=== PATIENT | male | born 2000 | race Two or more races ===

== ENCOUNTER 2025-02-13 08:00 | Emergency (ER) | payer SELFPAY ==
[~2025-02-13] VITALS: Ht 180.3 cm; Wt 74.8 kg
[2025-02-13 08:29] LABS: PLATELET COUNT (AUTO) 236 K/uL (150-450); RED BLOOD CELL COUNT(AUTO) 4.79 MIL/uL (4.5-6.0); RED CELL DISTRIBUTION WIDTH 12.9 % (11.5-15.0); WHITE BLOOD COUNT (AUTO) 7.8 K/uL (4.3-11.0)
[2025-02-13] MEDS ORDERED: ONDANSETRON HCL/PF 4 MG/2 ML VIAL ONE (08:36)
[2025-02-13] MEDS ORDERED: KETOROLAC TROMETHAMINE 15 MG/ML VIAL ONE (08:36)
[2025-02-13] MEDS: IV NS 0.9% 1,000 ML BAG IV ONE (08:37)
[2025-02-13] MEDS: ONDANSETRON HCL/PF 4 MG/2 ML VIAL IVP ONE (08:38)
[2025-02-13] MEDS: KETOROLAC TROMETHAMINE 15 MG/ML VIAL IV ONE (08:38)
[2025-02-13 08:41] LABS: CALCIUM, SERUM 9.2 mg/dL (8.5-10.1); CREATININE 0.9 mg/dL (0.6-1.3); SODIUM SERUM 138.0 mmol/L (136-145); UREA NITROGEN, BLOOD 16.0 mg/dL (7-18)
[2025-02-13 08:46] LABS: ASPARTATE AMINOTRANSFERASE 27.0 U/L (15-37); TOTAL PROTEIN, SERUM 8.1 g/dL (6.4-8.2)
[2025-02-13] MEDS ORDERED: FENTANYL PF 100MCG/2ML AMPUL ONE (08:52)
[2025-02-13] MEDS: FENTANYL PF 100MCG/2ML AMPUL IV ONE (08:57)
[2025-02-13 09:47] LABS: APPEARANCE,URINE TURBID (CLEAR); BLOOD, URINE 2+ Ery/uL (NEGATIVE); LEUKOCYTE ESTERASE ,URINE NEGATIVE (NEGATIVE); NITRITE, URINE POSITIVE (NEGATIVE); UGLUCOSE NEGATIVE (NEGATIVE)
[2025-02-13] MEDS ORDERED: TAMS-12 PO (09:49)
[2025-02-13] MEDS ORDERED: HYDR-4303 PO (09:49)
[2025-02-13] MEDS ORDERED: IBUP-1955 PO (09:49)
[2025-02-13] MEDS ORDERED: ONDA4TAB5 PO (09:49)
[2025-02-13] MEDS ORDERED: CEPH-570 PO (09:52)
[2025-02-13 09:54] LABS: ADD URINE CULTURE YES; SQUAMOUS EPITHELIAL CELL,UR None Seen /HPF (None Seen)
[2025-02-13 10:03] VITALS: BP 124/73; TEMP 98; O2SAT 98
== END 2025-02-13 10:03 | disposition home or self-care (01) ==
LOC: ER 08:04
DX: N13.2 Hydronephrosis with renal and ureteral calculous obstruction (principal)
CPT/HCPCS: 99285; 96374; 76770; 96375; 96361; 85025; 80048; 87086; 83690; 80076; 81001; 36415; J1885; J3010; J2405; J7030

== ENCOUNTER 2025-02-25 00:11 | Emergency (ER) | payer MEDICAID ==
[~2025-02-25] VITALS: Ht 180.3 cm; Wt 68.0 kg
[~2025-02-25 00:11] MED LIST: CEPH-570 PO; HYDR-4303 PO; IBUP-1955 PO; ONDA4TAB5 PO; TAMS-12 PO
[2025-02-25 00:56] LABS: PLATELET COUNT (AUTO) 314 K/uL (150-450); RED BLOOD CELL COUNT(AUTO) 4.33 MIL/uL (4.5-6.0); RED CELL DISTRIBUTION WIDTH 11.9 % (11.5-15.0); WHITE BLOOD COUNT (AUTO) 7.5 K/uL (4.3-11.0)
[2025-02-25 01:00] LABS: APPEARANCE,URINE TURBID (CLEAR)
[2025-02-25 01:02] LABS: SQUAMOUS EPITHELIAL CELL,UR 0-2 /HPF (None Seen)
[2025-02-25 01:05] LABS: CALCIUM, SERUM 9.1 mg/dL (8.5-10.1); CREATININE 1.2 mg/dL (0.6-1.3); SODIUM SERUM 139.0 mmol/L (136-145); UREA NITROGEN, BLOOD 12.0 mg/dL (7-18)
[2025-02-25 01:09] LABS: ASPARTATE AMINOTRANSFERASE 12.0 U/L (15-37); TOTAL PROTEIN, SERUM 8.0 g/dL (6.4-8.2)
[2025-02-25] MEDS ORDERED: TAMS-12 PO (02:22)
[2025-02-25] MEDS ORDERED: CEPH-570 PO (02:22)
[2025-02-25] MEDS: TAMSULOSIN 0.4 MG CAP.SR.24H PO ONE (02:36)
[2025-02-25] MEDS: CEPHALEXIN MONOHYDRATE 500 MG CAPSULE PO ONE (02:36)
[2025-02-25 02:38] VITALS: BP 127/88; TEMP 97.2; O2SAT 98
== END 2025-02-25 02:39 | disposition home or self-care (01) ==
LOC: ER 00:16
DX: N13.2 Hydronephrosis with renal and ureteral calculous obstruction (principal); Z87.442 Personal history of urinary calculi; Z60.2 Problems related to living alone; Z79.899 Other long term (current) drug therapy
CPT/HCPCS: 36415; 80053-TC; 81001; 83735-TC; 85025-TC; 86140-TC